=== PATIENT | female | born 1965 | race Caucasian/White ===

== ENCOUNTER → 2018-05-24 08:57 | Emergency (ER) | payer BC ==
[~2018-05-24 08:57] MED LIST: Al Hydrox/Mg Hydrox/Simet LIQ* 30 ML UDC PO ONE; Famotidine TAB* 20 MG PO ONE; HYDROmorphone INJ* 2 MG/ML CARPUJECT SYRINGE IV SLOW PU ONE; HYDROmorphone INJ1* 1 MG/ML SYRINGE IV ONE; HYDROmorphone INJ1* 1 MG/ML SYRINGE ONE; Iodixanol* (CONTRAST) 320 MG/ML 100 ML SDV IV ONE; Lidocaine 2% VISCOUS* 15 ML UDC PO ONE; NS 0.9% 1000 ML* 1,000 ML IV ONE; Pantoprazole IV* 40 MG IV ONE
[2018-05-24 09:32] LABS: ABS Basophils 0.1 10^3/ul (0-0.2); ABS Eosinophils 0.1 10^3/ul (0-0.6); ABS Monocytes 0.9 10^3/ul (0-0.8); ABS Nucleated RBC 0 10^3/ul; Eosinophil % 0.5 % (0-6); Hematocrit 44 % (35-47); Hemoglobin 15.2 g/dl (12.0-16.0); Lymphocyte % 10.4 % (25-47); Mean Corpuscular HGB Conc 34 g/dl (31-36); Mean Corpuscular Hemoglobin 29 pg (27-31); Mean Corpuscular Volume 85 fL (80-97); Mean Platelet Volume 9.7 fL (7.4-10.4); Nucleated Red Blood Cells % 0.1; Platelet Count 281 10^3/ul (150-450); Red Blood Count 5.21 10^6/ul (4.00-5.40); Red Cell Distribution Width 13 % (10.5-15)
--- NOTE | 2018-05-24 09:33 | ED ---
HPI Chest Pain - HPI Summary HPI Summary: This patient is a 52 year old F BIBA to [facility] accompanied by family with a chief complaint of crushing sub-sternal CP that began at 0600. The patient rates the pain 10/10 in severity. Symptoms aggravated by nothing. Symptoms alleviated by nothing. Patient reports palpitations (chronic). Patient denies cough, nasal congestion, and fever. Patient states she has a history of diabetes and GERD. - History of Current Complaint Time Seen by Provider: 05/24/18 09:08 Hx Obtained From: Patient Onset/Duration: Started Hours Ago, Atraumatic, Still Present Timing: Constant Initial Severity: Severe Current Severity: Severe Pain Intensity: 10 Pain Scale Used: 0-10 Numeric Chest Pain Location: Mid Sternal Chest Pain Radiates: No Character: Crushing Aggravating Factor(s): Nothing Alleviating Factor(s): Nothing Associated Signs and Symptoms: Positive: Other: - Positive palpitations (chronic ). Negative cough, nasal congestion, and fever. - Allergy/Home Medications Allergies/Adverse Reactions: Allergies Allergy/AdvReac Type Severity Reaction Status Date / Time No Known Allergies Allergy Verified 05/24/18 09:27 Home Medications: Home Medications Atorvastatin* [Lipitor 20 MG*] 20 mg PO DAILY 05/24/18 [History Confirmed ] Dulaglutide (NF) [Trulicity (NF)] 1.5 mg SUBCUT WEEKLY 05/24/18 [History Confirmed 05/24/18] Insulin Glargine,Hum.rec.anlog [Lantus Solostar 5x3 ML PENS] 20 units SUBCUT BEDTIME 05/24/18 [History Confirmed 05/24/18] Metoprolol Succinate XL TAB* [Toprol XL TAB*] 25 mg PO DAILY 05/24/18 [History Confirmed 05/24/18] Omeprazole 20 mg PO DAILY 05/24/18 [History Confirmed 05/24/18] Sitagliptin Phosphate [Januvia] 100 mg PO DAILY 05/24/18 [History Confirmed 10/06] metFORMIN* [Glucophage 1000 MG TAB *] 1,000 mg PO BID 05/24/18 [History Confirmed 05/24/18] PMH/Surg Hx/FS Hx/Imm Hx Previously Healthy: No Endocrine/Hematology History: Reports: Hx Diabetes Cardiovascular History: Reports: Other Cardiovascular Problems/Disorders - Palpitations GI History: Reports: Hx Gastroesophageal Reflux Disease - Cancer History Hx Chemotherapy: No Hx Radiation Therapy: No - Surgical History Surgery Procedure, Year, and Place: HERNIA REPAIR Infectious Disease History: Reports: Traveled Outside the [place] in Last 30 Days - [place] - Family History Known Family History: Positive: Diabetes - Social History Occupation: Employed Full-time Lives: With Family Alcohol Use: Occasionally Hx Substance Use: No Hx Tobacco Use: Yes Smoking Status (MU): Former Smoker Review of Systems Negative: Fever Positive: Other - Negative nasal congestion Positive: Palpitations, Chest Pain Negative: Cough All Other Systems Reviewed And Are Negative: Yes Physical Exam - Summary Physical Exam Summary: Appearance: Well appearing, no pain distress Skin: warm, dry, reflects adequate perfusion Head/face: normal Eyes: EOMI, MAHIN ENT: mucous membranes moist Neck: supple, non-tender Respiratory: CTA, breath sounds present Cardiovascular: RRR, pulses symmetrical Abdomen: soft. No RUQ pain, no tenderness upon palpation Bowel Sounds: present Musculoskeletal: normal, strength/ROM intact Neuro: normal, sensory motor intact, A&Ox3 Triage Information Reviewed: Yes Vital Signs Reviewed: Yes Diagnostics - Laboratory Result Diagrams: 05/24/18 09:19 05/24/18 09:19 Lab Statement: Any lab studies that have been ordered have been reviewed, and results considered in the medical decision making process. - Radiology CXR Radiology Interpretation Completed By: ED Physician Summary of Radiographic Findings: CXR reveals, per ED physician, no acute disease. - CT CT Abdomen and Pelvis CT Interpretation Completed By: Radiologist Summary of CT Findings: CT abdomen and pelvis reveals, per radiologist, 1. Cholelithiasis without evidence of pathologic biliary obstruction or acute inflammatory change of the gallbladder. 2. Likely hepatic steatosis and hepatomegaly. 3. Normal appendix. 4. Scattered distal colonic diverticula without definite inflammatory change consistent with acute diverticulitis. ED physician has reviewed this radiology report. - EKG 0913 Cardiac Rate: NL EKG Rhythm: Sinus Rhythm - [address] Segment: Normal Ectopy: None Summary of EKG Findings: An EKG taken at 0913 reveals normal sinus rhythm at 93 BPM with normal axis, normal interval, and normal ST - Additional Comments Diagnostic Additional Comments: Gallbladder US reveals, per radiologist, 1. CHOLELITHIASIS WITHOUT SIGNS OF ACUTE BILIARY OBSTRUCTION OR ACUTE INFLAMMATORY CHANGE OF THE GALLBLADDER. 2. HOMOGENOUSLY INCREASED ECHOGENICITY OF THE MILDLY ENLARGED LIVER COULD BE SEEN IN THE SETTING OF HEPATIC STEATOSIS. ED physician has reviewed this radiology report. Re-Evaluation - Re-Evaluation First Eval Re-Evaluation Time: 10:25 Change: Unchanged Comment: Patient is pacing in the room Second Eval Re-Evaluation Time: 11:28 Change: Improved Comment: Patient reports pain is improved. Upon re-examination she no longer has tenderness. Chest Pain Course/Dx - Course Course Of Treatment: Patient had been out of the country drinking daily while in the [place]. She has acute onset of epigastric discomfort that is nonradiating. Gallbladder ultrasound shows a stone but no evidence for inflammation. Contrasted CT reveals some upper abdominal adenopathy but no evidence for gastritis or perforation. The gallstone is again seen. Patient is much more comfortable with GI treatments and treatment of pain. She was observed for several hours and had no return of pain. The abdomen is soft attempted discharge. - Chest Pain Differential Diagnosis/HQI/PQRI: ACS, CHF, GI Disease, Lower Respiratory Infection - Diagnoses Provider Diagnoses: Gastritis, Epigastric abdominal pain Discharge - Sign-Out/Discharge Documenting (check all that apply): Patient Departure - Discharge home - Discharge Plan Condition: Improved Disposition: HOME Prescriptions: Famotidine TAB* [Pepcid 20 MG TAB*] 20 mg PO BID #20 tab Pantoprazole TAB (NF) [Protonix TAB (NF)] 40 mg PO DAILY #30 tab Sucralfate TAB* [Carafate*] 1 gm PO ACHS #40 tab traMADol TAB* [Ultram*] 50 mg PO Q8HR #12 tab MDD 3 Patient Education Materials: Gastritis (ED) Referrals: Chris Eldridge MD [Primary Care Provider] - Additional Instructions: Avoid any anti-inflammatory such as ibuprofen or Aleve. Avoid alcohol. Return with fever, uncontrolled pain, worse, new symptoms or other concerns as discussed. - Billing Disposition and Condition Condition: IMPROVED Disposition: Home - Attestation Statements Document Initiated by Scribe: Yes Documenting Scribe: Meryl Quezada Provider For Whom Scribe is Documenting (Include Credential): Dr. Chris Mills MD Scribe Attestation: IMeryl, scribed for Dr. Chris Mills MD on 05/24/18 at 1440. Scribe Documentation Reviewed: Yes Provider Attestation: The documentation as recorded by the scribe, Meryl Quezada accurately reflects the service I personally performed and the decisions made by me, Dr. Chris Mills MD
[2018-05-24 09:45] LABS: INR 0.93 (0.77-1.02)
[2018-05-24 09:52] LABS: EGFR Non-African American 129.6 (>60)
--- NOTE | 2018-05-24 09:53 | RAD ---
INDICATION: Chest pain COMPARISON: None. TECHNIQUE: Single AP portable view of the chest was obtained. FINDINGS: Image quality is compromised due to the relative inferiority of a portable chest x-ray. The heart and mediastinum exhibit normal size and contour. The lungs are grossly clear. There is no evidence of a large pleural effusion. Visualized bones are normal for the patient's age. IMPRESSION: No radiographic evidence for acute cardiopulmonary abnormality on this portable chest x-ray.
--- NOTE | 2018-05-24 11:09 | RAD ---
HISTORY: Right upper quadrant pain. COMPARISONS: None TECHNIQUE: Multiple transverse and longitudinal ultrasound images were obtained of the right upper quadrant. FINDINGS: LIVER: The liver is mildly enlarged measuring 20.7 cm in greatest cephalocaudal dimension with homogenously increased echogenicity. Normal hepatic and portal venous blood flow is duplicated with color flow imaging. There is no gross intrahepatic biliary duct dilatation. GALLBLADDER AND EXTRAHEPATIC BILIARY DUCT: In the dependent portion of the gallbladder including the gallbladder neck there are at least 2 echogenic shadowing stones. There is no pericholecystic fluid or gallbladder wall thickening. The common bile duct measures a maximum diameter of 6 mm. PANCREAS: The portions of the pancreas not obscured by bowel gas are normal in appearance. RIGHT KIDNEY: The right kidney is normal in size, morphology and echogenicity. AORTA AND IVC: The visualized portions are normal in appearance and not pathologically dilated. IMPRESSION: 1. CHOLELITHIASIS WITHOUT SIGNS OF ACUTE BILIARY OBSTRUCTION OR ACUTE INFLAMMATORY CHANGE OF THE GALLBLADDER. 2. HOMOGENOUSLY INCREASED ECHOGENICITY OF THE MILDLY ENLARGED LIVER COULD BE SEEN IN THE SETTING OF HEPATIC STEATOSIS.
--- NOTE | 2018-05-24 14:02 | RAD ---
CLINICAL HISTORY: Chest pain and nausea in a patient with a history of hernia repair COMPARISON: Same day gallbladder ultrasound demonstrates cholelithiasis. TECHNIQUE: Contrast enhanced CT examination of the abdomen and pelvis from the lung bases through the initial tuberosities. The patient received 122 mL of Visipaque 320 intravenously prior to imaging.The patient received oral contrast as well prior to imaging. FINDINGS: VISUALIZED LUNG BASES: The visualized lung bases are grossly clear. There is no pleural effusion. ABDOMEN AND PELVIS: The liver is homogenously hypodense relative to the spleen. There are no focal liver masses. The liver measures 20.2 cm in greatest cephalocaudal dimension. The spleen, pancreas and adrenal glands are grossly normal in appearance. There are hyperattenuating stones in the dependent gallbladder correlating to images acquired on the same day ultrasound. The kidneys are normal in appearance without focal mass, calcification or signs of hydronephrosis. The oral contrast has progressed only as far as the distal small bowel which limits evaluation of the terminal ileum and colon. The small and large bowel are not distended. The patient's normal appendix is identified in the right lower quadrant measuring about 5 mm in diameter (axial image 58) without pericholecystic inflammatory changes. There are scattered distal colonic diverticula but there is no focal inflammatory change characteristic of acute diverticulitis.. There is no gross retroperitoneal or mesenteric lymphadenopathy. The pelvic viscera is normal in appearance. The abdominal aorta and iliac arteries are normal in course and diameter. Degenerative changes include multilevel loss of intervertebral disc height involving the lower thoracic and lumbar spine.There are no sinister bone lesions. IMPRESSION: 1. Cholelithiasis without evidence of pathologic biliary obstruction or acute inflammatory change of the gallbladder. 2. Likely hepatic steatosis and hepatomegaly. 3. Normal appendix. 4. Scattered distal colonic diverticula without definite inflammatory change consistent with acute diverticulitis.
[2018-05-24 14:34] VITALS: BP 103/82
== END | disposition home or self-care (01) ==
LOC: ED 08:57
DX: K29.70 Gastritis, unspecified, without bleeding (principal); R10.13 Epigastric pain; R00.2 Palpitations; R07.9 Chest pain, unspecified; Z87.891 Personal history of nicotine dependence; E11.9 Type 2 diabetes mellitus without complications
CPT/HCPCS: 36415; 71045; 74177; 76705; 80053; 83605; 83690; 83880; 84443; 84484; 85025; 85379; 85610; 93005; 96374; 96375; 96376; 99284; A9270-GY; J1170; Q9967

== ENCOUNTER 2018-05-29 15:15 | Emergency (ER) | payer BC ==
--- OUTSIDE RECORDS SUMMARY | 2018-05-29 15:25 | XMS REPORT ---
:1965 External Reference #:[id number] Author Organization [facility] Address [address] [place] [address] Phone [phone] Care Team Providers Name Role Phone Chris Eldridge MD Care Team Information Service Crew Leader Unavailable Chris Eldridge MD Primary Care Physician Unavailable Payers Type Date Identification Numbers Payment Provider Subscriber Commercial Effective: Policy Number: BluePPO Usha Eden 2016 [id number] PayID: [id number] [id number] Problems Date Description Provider Status Onset: 10/26/2015 Disorder of teeth AND/OR supporting Erik Whitmore M.D. Active structures Onset: 04/01/2014 Type II diabetes mellitus Chris Eldridge M.D. Active uncontrolled Onset: 12/24/2013 Palpitations Chris Eldridge M.D. Active Onset: 04/18/2013 Cellulitis Erik Whitmore M.D. Active Onset: 11/02/2010 Type 2 diabetes mellitus Chris Eldridge M.D. Active Family History Date Family Member(s) Problem(s) Comments Father due to Etoh abuse () Father Alcoholism Mother Diabetes Mellitus, II Mother Throat Cancer Mother OR Number of Children 1 First Son Unremarkable Number of Siblings Siblings: 8 First Sister Aneurysm of ascending aorta Second Sister Diabetes Mellitus, II Social History Type Date Description Comments Marital Status Patient is Occupation TTC / banking Cigarette Use Nonsmoker ETOH Use Occasional Smoking Patient has never smoked Daily Caffeine Does not consume caffeine Exercise Type/Frequency Current Exercises regularly. Walking Seat Belt/Car Seat Always uses a seat belt Currently Active The patient is currently sexually active Allergies, Adverse Reactions, Alerts Date Description Reaction Status Severity Comments 10/27/2002 Darvocet active 02/04/2015 Lisinopril dizziness active Medications Medication Date Status Form Strength Qnty SIG Indications Ordering Provider Insulin 07/12 Active 1box Syringes Hoa Syringes with JEAN-CLAUDE Deshpande needle to inject Lantus 10 units Subcutaneo usly in the evening Betamethasone 10/14 Active Cream 0.1% 90gm Apply 2 692.9 Chris A. Valerate Times Darlow, Daily as M.D. Needed Freestyle Lite 09/30 Active Strips 1Box test bid E11.9 Chris A. Test Strips dx: 250.03 Jazmyn, Lupe Freestyle 09/30 Active Misc 1box test qd E11.9 Vida Unistick II dx: 250.03 Katiana Saavedra-Delta Vitamin D3 09/27 Active 2000Unit 90uni 1 po qd E11.9 Radha Tyrone. martín Burns M.D. Metoprolol Active Tablets ER 25mg 90tab 1 po qd Unknown Succinate ER /0000 24HR s Atorvastatin Active Tablets 20mg 2 by mouth Unknown Calcium /0000 every day Omeprazole [address] 20mg 1 by mouth Unknown /0000 every day Metformin HCL Active Tablets 1000mg take one Unknown /0000 tablet by mouth twice a day Januvia Active Tablets 100mg 1 by mouth Unknown /0000 every day Lantus 00 Active Solution 100Unit/M 20 units Unknown /0000 L at bedtime Famotidine Active Tablets 20mg take one Unknown /0000 tablet by mouth twice a day Pantoprazole Active Tablets DR 40mg 1 by mouth Unknown Sodium /0000 every day Sucralfate Active Tablets 1gm take 1 by Unknown /0000 mouth 4 times per day: before meals and at bedtime Tramadol HCL Active Tablets 50mg 1 by mouth Unknown /0000 every 6 hours as needed Diflucan 03/20 Hx Tablets 150mg 10tab 1 tab po N76.0 s daily x 5 John, - days, november LOOM BLOWER 05/29 repeat day course in one week if symptoms fail to resolve/ Hold Atorvastat in While Usingthis Augmentin 10/25 Hx Tablets 500-125mg 20tab 1 by mouth Erik Costello s twice a Haim, - day M.D. 03/20 Camrese 06/28 Hx Tablets 0.15-0.03 1tabs take 1 &0.01mg tablet John, - daily LOOM BLOWER 05/29 Fluconazole 02/04 Hx Tablets 150mg 2tabs 1 by mouth 112.1 today and JEAN-CLAUDE Deshpande - repeat in 02/11 a Nor-qd 02/04 Hx Tablets 0.35mg 30tab 1 by mouth V25.41 s daily JEAN-CLAUDE Deshpande - 05/29 Alcohol Pads 07/12 Hx 1Box For use with JEAN-CLAUDE Deshpande - Lantus 02/04 insulin daily Lantus Solostar 07/12 Hx Solution 100Unit/M inject 10 Pen-Inject L units each JEAN-CLAUDE Deshpande - evening or 02/04 directed Metformin HCL 07/06 Hx Tablets 500mg 90tab 1 by mouth 250.02 s every day JEAN-CLAUDE Deshpande - 02/04 Lantus 07/06 Hx Solution 100Unit/M 10uni inject 10 L ts units Jazmyn, - under the M.D. 07/12 skin evening as directed Meloxicam 07/01 Hx Tablets 7.5mg 30tab take 1 726.10 Chris A. s tablet Darjareth, - twice a M.D. Januvia 04/01 Hx Tablets 100mg 90tab 1 po qd 250.02 Chris A. s Jazmyn, - M.D. 07/06 Diflucan 12/24 Hx Tablets 150mg 2tabs 1 po times 112.1 Chris A. 1 day, november Jazmyn, - repeat in M.D. 12/26 5-7 days Januvia 12/24 Hx Tablets 50mg 30tab 1 po qd 250.02 Chris A. s Jazmyn, - M.D. 04/01 Glipizide/Metfo 04/22 Hx Tablets 2.5-500mg 120ta Take 2 250.02 Vida rmin HCL bs Tablets By Quentin, - Mouth Two Afnp-C 04/28 Times Daily Glipizide-Metfo 04/22 Hx Tablets 2.5-500mg 120ta take 2 250.02 Vida rmin bs tablets by Quentin, - mouth two Afnp-C 07/06 daily Metformin HCL 01/20 Hx Tablets 1000mg 60tab take 1 250.02 s tablet by Quentin, - mouth Robert-C 04/22 twice a day Metformin HCL 10/14 Hx Tablets 500mg 60tab 1 po bid 250.02 s Quentin, - Robert-C 01/20 Terconazole 10/01 Hx Cream 0.4% 1tube 1 616.10 applicator Quentin, - full Robert-C 10/08 vaginally at hs x 7 Fluconazole 10/01 Hx Tablets 100mg 7tabs 1 po qd x 616.10 7 days Quentin, - Robert-C 10/08 Seasonale 10/16 Hx Tablets 0.15-0.03 1pack 1 po qd 626.2 mg Quentin, - Robert-C 10/01 Amoxicillin 05/17 Hx Capsules 500mg 14cap bid x 7 Erik J. s Katelynn Najera M.D. 05/29 Fluoxetine HCL 02/13 Hx Capsules 10mg 30cap 1 po qd 627.9 Chris ACristian Katelynn Mccann M.D. 09/27 Spectazole 09/20 Hx Cream 1% 30GR apply bid 110.3 Nena L. to area x Mello, - 2-4 weeks M.D. 02/13 directed Nizoral 09/20 Hx Shampoo 2% 1unit use in 110.3 Nena L. s shower 2-3 Mello, - times/week M.D. 02/13 . Spectazole 07/18 Hx Cream 1% 30GR apply bid 110.3 Chris A. to area x Jazmyn, - 2-4 weeks M.D. 07/30 directed Mycolog-II 10/20 Hx Cream 30gm apply bid 110.3 Chris A. to Jazmyn, - affected M.D. 07/18 area x 2- weeks Diflucan 10/19 Hx Tablets 150mg 1tabs 1 po x1 Laxmi, - Afnp-C 10/20 Work Excuse 10/06 Hx unable to Erik JCristian work for Haim, - 2-3 days M.D. 10/19 Nystatin 12/02 Hx Suspension [id number] 200ml 5 ml swish t/ML and spit q owen Guerrero, - 4 hours M.D. 10/06 awake until lesion resolved Out Of Work 12/02 Hx 12/03/07 for owen Guerrero, - medical M.D. 10/06 Amoxil 07/23 Hx Capsules 500mg 30cap 1 PO tid s Katelynn Hair Afnp-C 08/02 Relafen 03/04 Hx Tablets 500mg 30tab 1 PO bid 840.8 Chris A. /2006 s Katelynn Eldridge M.D. 03/18 Physical 03/04 Hx treatment 840.8 Chris ACristian and Katelynn Eldridge evaluation M.DCristian 03/16 biceps pain Naprosyn 08/02 Hx Tablets 500mg 30tab 1 bid With 726.12 Chris ACristian /2005 s Food Katelynn Eldridge M.D. 08/12 Norflex 08/02 Hx Tablets 100mg 30tab 1 PO bid 726.12 Chris A. /2005 s Katelynn Eldridge M.D. 08/12 Relafen 04/03 Hx 500mg 60uni 1 PO bid Chris A. ts prn Katelynn Eldridge M.D. 08/02 Atarax 02/04 Hx Tabs 25mg 24tab 1 po 3-4 s times a Aurelio, LOOM BLOWER - day prn 08/02 itching /2005 Hydrocortisone 02/04 Hx 1% 30gm apply tid prn to LEEANNA CareyP - affected 08/02 areas /2005 Apri 12/29 Hx 1Pack 1 po qd Chris A. /2003 Katelynn Eldridge M.D. 11/02 Bextra 12/29 Hx 20mg 30uni 1 qd Chris A. Katelynn Sesay M.D. 01/28 Physical 12/29 Hx treatment Chris ACristian Therapy and Jazmyn - evaluation Lupe 01/26 Of Shoulder Ibuprofen 03/12 Hx 600mg 60uni 1 po q8h Vida ts prn with Katelynn Saavedra food Afnp-C 12/29 Ankle Stirrup 03/12 Hx 1unit Left Ankle Vida Brace s #1 Katelynn Saavedra-Delta 03/26 Vioxx 10/26 Hx 50mg 4unit One PO Chris A. s X4days Katelynn Eldridge M.D. 11/03 Pen VK 09/30 Hx Tablets 500mg 40tab 1 qid [facility] 10/01 Of Adkins Diflucan 09/30 Hx 150mg 2unit 1 PO One Eduard J. /2002 s Time Michela, - Repeat If Lupe 10/01 Still SX In 3 Days Augmentin 07/16 Hx 875mg 20uni 1 PO bid Alexandr T. Katelynn Marroquin M.D. 07/14 Duratuss GP 07/16 Hx 30uni 1 PO Q 12 Alexandr T. ts HR prn Rasheeda - Head M.DCristian 07/14 Congestion Augmentin 07/04 Hx 500mg 20uni 1 po bid Erik J. Katelynn Aviles M.D. 10/19 Duravent Da 07/04 Hx 20uni 1 PO bid Chris A. Katelynn Sesay M.D. 07/14 Cutivate Cream 03/14 Hx 0.05% 15G apply once a day prn Katelynn Saavedra-Delta 12/29 Orthotricyclen 11/07 Hx [facility] 12/29 Of Penicillin VK 11/07 Hx 250mg 30uni One tid Thomas Mc Katelynn Shaw M.D. 11/17 Zithromax 09/24 Hx 250mg 6unit 2 Tabs Day . s 1 Brian - M.DCristian 09/29 Tab qd Days 2 Thru 5 Entex Pse 09/24 Hx 30uni 1 bid prn . ts Congestion Brian - M.DCristian 10/14 Motrin 03/13 Hx 600mg 30uni 1 PO tid Thomas . ts prn Brian - M.DCristian 11/07 Bactrim DS 03/23 Hx 14uni 1 PO bid Lisandro F. ts Shallreinaldo - M.DCristian 03/30 Bactrim DS 11/25 Hx 14uni 1 PO bid ts Ryan, - CANDLE WRAPPER-F 12/02 Pyridium 11/25 Hx 200mg 15uni 1 PO tid ts prn Ryan, - CANDLE WRAPPER-F 12/02 Naproxen 08/26 Hx 375mg Tab 30uni 1 PO tid ts For 5 Days Blangelic, - Then tid M.DCristian 09/09 pr Entex Pse 04/28 Hx 20uni 1 bid prn ts Laxmi, - Afnp-C 08/02 Zithromax 04/28 Hx 250mg 6unit 2 Tabs Day . s 1 Brian - MCristianDCristian 08/26 Tab qd Days 2 Thru 5 Betamethasone Hx Cream 0.1% 45uni apply bid Unknown Valerate /0000 ts prn - 05/10 Bactrim DS Hx Tablets 800-160mg 14tab 1 po bid Unknown /0000 s - 07/30 Seasonique Hx Tablets 0.15-0.03 91tab take 1 Chris A. /0000 &0.01mg s tablet by Darlow, - mouth one M.D. 02/04 time daily Glipizide-Metfo Hx Tablets 2.5-500mg 120ta Take 2 Chris A. rmin HCL /0000 bs Tablets By Darlow, - Mouth Two M.D. 10/25 Daily Victoza Hx Solution 18mg/3ML 1.8 units Unknown /0000 Pen-Inject per day - 05/29 Invokana Hx Tablets 300mg 1 po qd Unknown /0000 - 07/25 Medications Administered in Office Medication Date Status Form Strength Qnty SIG Indications Ordering Provider TB Intradermal Administered Injection Chris Eldridge M.D. Immunizations CPT Code Status Date Vaccine Lot # [id number] Given 04/04/2018 Influenza Vac, Quad[place] [id number] Given 04/27/2017 Influenza Vac, [place] [address] Given 05/28/2014 DO Not Use Split Influenza Virus Vaccine 46929 Given 10/15/2013 Tdap Tetanus, W Pertussis [id number] Given 05/08/2012 DO Not Use Split Influenza Virus Vaccine 14471 Given 05/10/2010 DO Not Use Split Influenza Virus Vaccine 64540 Given 04/28/2009 DO Not Use Split Influenza Virus Vaccine Vital Signs Date Vital Result Comment 05/29/2018 BP Systolic 120 mmHg BP Diastolic 60 mmHg Heart Rate 80 /min Body Temperature 97.4 F Respiratory Rate 16 /min Height 64 inches 5'4" Weight 220.00 lb BMI (Body Mass Index) 37.8 kg/m2 03/20/2016 BP Systolic 110 mmHg BP Diastolic 78 mmHg Heart Rate 80 /min Body Temperature 98.0 F Respiratory Rate 18 /min Height 64 inches 5'4" Weight 210.00 lb BMI (Body Mass Index) 36.0 kg/m2 10/26/2015 BP Systolic 124 mmHg BP Diastolic 80 mmHg Heart Rate 78 /min Body Temperature 98.1 F Respiratory Rate 16 /min Height 64 inches 5'4" Weight 213.00 lb BMI (Body Mass Index) 36.6 kg/m2 02/04/2015 BP Systolic 112 mmHg BP Diastolic 80 mmHg Heart Rate 80 /min Body Temperature 98.0 F Respiratory Rate 16 /min Height 64 inches 5'4" Weight 218.00 lb BMI (Body Mass Index) 37.4 kg/m2 07/12/2014 BP Systolic 120 mmHg BP Diastolic 80 mmHg Heart Rate 76 /min Body Temperature 98.3 F Respiratory Rate 16 /min Height 64 inches 5'4" Weight 234.00 lb BMI (Body Mass Index) 40.2 kg/m2 07/01/2014 BP Systolic 122 mmHg BP Diastolic 80 mmHg Heart Rate 88 /min Body Temperature 97.0 F Respiratory Rate 20 /min Height 64 inches 5'4" Weight 231.00 lb BMI (Body Mass Index) 39.6 kg/m2 04/01/2014 BP Systolic 120 mmHg BP Diastolic 80 mmHg Heart Rate 84 /min Body Temperature 97.6 F Respiratory Rate 20 /min Height 64 inches 5'4" Weight 234.00 lb BMI (Body Mass Index) 40.2 kg/m2 12/24/2013 BP Systolic 120 mmHg BP Diastolic 60 mmHg Heart Rate 72 /min Body Temperature 98.0 F Respiratory Rate 20 /min Height 64 inches 5'4" Weight 237.00 lb BMI (Body Mass Index) 40.7 kg/m2 10/15/2013 BP Systolic 132 mmHg BP Diastolic 92 mmHg Heart Rate 76 /min Body Temperature 99.0 F Respiratory Rate 16 /min Height 64 inches 5'4" Weight 229.00 lb BMI (Body Mass Index) 39.3 kg/m2 07/30/2013 BP Systolic 112 mmHg BP Diastolic 80 mmHg Heart Rate 68 /min Body Temperature 98.5 F Respiratory Rate 16 /min Height 65 inches 5'5" Weight 227.00 lb BMI (Body Mass Index) 37.8 kg/m2 04/22/2013 BP Systolic 134 mmHg BP Diastolic 90 mmHg Heart Rate 84 /min Body Temperature 97.6 F Respiratory Rate 16 /min Height 65 inches 5'5" Weight 220.00 lb BMI (Body Mass Index) 36.6 kg/m2 04/18/2013 BP Systolic 134 mmHg BP Diastolic 76 mmHg Heart Rate 66 /min Body Temperature 98.3 F Respiratory Rate 16 /min Height 65 inches 5'5" Weight 220.38 lb BMI (Body Mass Index) 36.7 kg/m2 01/20/2013 BP Systolic 122 mmHg BP Diastolic 80 mmHg Heart Rate 72 /min Body Temperature 98.0 F Respiratory Rate 16 /min Height 65 inches 5'5" Weight 226.00 lb BMI (Body Mass Index) 37.6 kg/m2 10/14/2012 BP Systolic 110 mmHg BP Diastolic 70 mmHg Heart Rate 96 /min Body Temperature 98.7 F Height 65 inches 5'5" Weight 231.00 lb BMI (Body Mass Index) 38.4 kg/m2 10/01/2012 BP Systolic 104 mmHg BP Diastolic 78 mmHg Heart Rate 84 /min Body Temperature 98.7 F Height 65 inches 5'5" Weight 231.00 lb BMI (Body Mass Index) 38.4 kg/m2 10/11/2011 BP Systolic 120 mmHg BP Diastolic 80 mmHg Heart Rate 96 /min Height 65 inches 5'5" Weight 243.00 lb BMI (Body Mass Index) 40.4 kg/m2 07/30/2011 BP Systolic 120 mmHg BP Diastolic 68 mmHg Heart Rate 84 /min Body Temperature 98.4 F Respiratory Rate 22 /min Height 65 inches 5'5" Weight 234.00 lb BMI (Body Mass Index) 38.9 kg/m2 02/05/2011 BP Systolic 114 mmHg BP Diastolic 76 mmHg Heart Rate 88 /min Body Temperature 98.4 F Height 65 inches 5'5" Weight 223.00 lb BMI (Body Mass Index) 37.1 kg/m2 11/02/2010 BP Systolic 124 mmHg BP Diastolic 74 mmHg Heart Rate 74 /min Body Temperature 98.5 F Respiratory Rate 16 /min Height 65 inches 5'5" Weight 234.00 lb BMI (Body Mass Index) 38.9 kg/m2 10/16/2010 BP Systolic 110 mmHg BP Diastolic 70 mmHg Heart Rate 80 /min Body Temperature 97.5 F Respiratory Rate 20 /min Height 65 inches 5'5" Weight 239.00 lb BMI (Body Mass Index) 39.8 kg/m2 10/07/2010 BP Systolic 130 mmHg BP Diastolic 90 mmHg Heart Rate 80 /min Respiratory Rate 15 /min Height 65 inches 5'5" Weight 242.00 lb BMI (Body Mass Index) 40.3 kg/m2 09/30/2010 BP Systolic 136 mmHg BP Diastolic 90 mmHg Heart Rate 100 /min Body Temperature 98.3 F Respiratory Rate 20 /min Height 65 inches 5'5" Weight 242.00 lb BMI (Body Mass Index) 40.3 kg/m2 09/27/2010 BP Systolic 120 mmHg BP Diastolic 78 mmHg Heart Rate 68 /min Respiratory Rate 15 /min Height 65 inches 5'5" Weight 248.00 lb BMI (Body Mass Index) 41.3 kg/m2 05/29/2010 BP Systolic 122 mmHg BP Diastolic 82 mmHg Heart Rate 88 /min Body Temperature 98.2 F Respiratory Rate 16 /min Height 65 inches 5'5" Weight 248.00 lb BMI (Body Mass Index) 41.3 kg/m2 05/17/2010 BP Systolic 124 mmHg BP Diastolic 66 mmHg Heart Rate 90 /min Body Temperature 98.9 F Height 65 inches 5'5" Weight 249.00 lb BMI (Body Mass Index) 41.4 kg/m2 02/13/2010 BP Systolic 120 mmHg BP Diastolic 82 mmHg Heart Rate 84 /min Body Temperature 98.4 F Respiratory Rate 16 /min Height 65 inches 5'5" Weight 248.00 lb BMI (Body Mass Index) 41.3 kg/m2 09/20/2009 BP Systolic 128 mmHg BP Diastolic 86 mmHg Heart Rate 96 /min Body Temperature 98.2 F Height 65 inches 5'5" Weight 244.00 lb BMI (Body Mass Index) 40.6 kg/m2 07/18/2009 BP Systolic 118 mmHg BP Diastolic 80 mmHg Heart Rate 84 /min Body Temperature 98.6 F Respiratory Rate 16 /min Height 65 inches 5'5" Weight 249.00 lb BMI (Body Mass Index) 41.4 kg/m2 05/10/2009 BP Systolic 120 mmHg BP Diastolic 66 mmHg Heart Rate 96 /min Body Temperature 98.6 F Respiratory Rate 16 /min Height 65 inches 5'5" Weight 244.00 lb BMI (Body Mass Index) 40.6 kg/m2 02/10/2009 BP Systolic 120 mmHg BP Diastolic 82 mmHg Heart Rate 72 /min Body Temperature 98.4 F Respiratory Rate 16 /min Height 65 inches 5'5" Weight 242.00 lb BMI (Body Mass Index) 40.3 kg/m2 10/19/2008 BP Systolic 100 mmHg BP Diastolic 70 mmHg Heart Rate 84 /min Body Temperature 98.3 F Weight 234.00 lb 10/06/2008 BP Systolic 124 mmHg BP Diastolic 88 mmHg Heart Rate 72 /min Body Temperature 99.4 F Height 65 inches 5'5" 12/03/2007 BP Systolic 120 mmHg BP Diastolic 80 mmHg Heart Rate 88 /min Body Temperature 98.6 F Height 65 inches 5'5" 2007 BP Systolic 130 mmHg BP Diastolic 74 mmHg Heart Rate 80 /min Body Temperature 99.0 F Height 65 inches 5'5" Weight 240.00 lb BMI (Body Mass Index) 39.9 kg/m2 07/23/2007 BP Systolic 126 mmHg BP Diastolic 82 mmHg Body Temperature 99.0 F Respiratory Rate 13 /min Weight 244.00 lb 03/04/2007 BP Systolic 112 mmHg BP Diastolic 80 mmHg Heart Rate 88 /min Weight 241.00 lb 12/25/2005 BP Systolic 114 mmHg BP Diastolic 72 mmHg Heart Rate 68 /min Respiratory Rate 18 /min 08/02/2005 BP Systolic 114 mmHg BP Diastolic 70 mmHg Heart Rate 72 /min Body Temperature 98.7 F Respiratory Rate 16 /min Weight 235.00 lb 07/21/2004 BP Systolic 110 mmHg BP Diastolic 70 mmHg Body Temperature 98.5 F Weight 233.50 lb 02/05/2004 BP Systolic 126 mmHg BP Diastolic 80 mmHg Heart Rate 72 /min Weight 233.00 lb 12/30/2003 BP Systolic 122 mmHg BP Diastolic 80 mmHg Heart Rate 78 /min Weight 234.00 lb 03/12/2003 BP Systolic 96 mmHg BP Diastolic 64 mmHg Heart Rate 88 /min Weight 213.00 lb 11/03/2002 BP Systolic 110 mmHg BP Diastolic 84 mmHg Body Temperature 98.5 F Weight 214.00 lb 10/27/2002 BP Systolic 120 mmHg BP Diastolic 80 mmHg Body Temperature 98.3 F Weight 215.00 lb 09/30/2002 BP Systolic 110 mmHg BP Diastolic 74 mmHg Heart Rate 76 /min Body Temperature 98.0 F Weight 220.00 lb 07/14/2002 Heart Rate 80 /min Body Temperature 98.7 F Weight 227.00 lb 07/16/2001 BP Systolic 118 mmHg BP Diastolic 70 mmHg Body Temperature 98.0 F Weight 227.00 lb 12/05/2000 BP Systolic 122 mmHg BP Diastolic 70 mmHg Weight 230.00 lb 11/15/2000 BP Systolic 110 mmHg BP Diastolic 72 mmHg Heart Rate 88 /min Weight 234.00 lb 07/04/2000 BP Systolic 138 mmHg BP Diastolic 76 mmHg Heart Rate 76 /min Body Temperature 97.4 F Weight 230.00 lb 03/14/2000 BP Systolic 132 mmHg BP Diastolic 60 mmHg Weight 226.00 lb 11/08/1999 BP Systolic 132 mmHg BP Diastolic 90 mmHg Body Temperature 96.4 F Weight 223.00 lb 09/25/1999 BP Systolic 104 mmHg LA LG Cuff BP Diastolic 66 mmHg LA LG Cuff Body Temperature 97.3 F Weight 220.00 lb 03/13/1999 BP Systolic 106 mmHg LG Cuff BP Diastolic 70 mmHg LG Cuff Weight 213.00 lb 05/12/1998 BP Systolic 100 mmHg LG Cuff BP Diastolic 70 mmHg LG Cuff Body Temperature 97.6 F Weight 225.00 lb 03/23/1998 Body Temperature 98.4 F Height 65 inches 5'5" Weight 225.00 lb 1997 BP Systolic 100 mmHg LG Cuff BP Diastolic 70 mmHg LG Cuff Height 65 inches 5'5" Weight 222.50 lb 08/26/1997 BP Systolic 128 mmHg LG Cuff BP Diastolic 80 mmHg LG Cuff Height 65.00 inches 5'5" Weight 215.00 lb 04/28/1997 Body Temperature 98.3 F Weight 207.00 lb Results Test Date Test Result H/L Range Note Laboratory test 05/24/2018 Troponin I 0.00 ng/mL <0.04 finding Inr/Protime 05/24/2018 Inr 0.93 0.77-1.02 Laboratory test 05/24/2018 D Dimer Quantitative < 200 ng/mL Less Than 230 1 finding CBC Auto Diff 05/24/2018 White Blood Count 19.0 10^3/uL High 3.5-10.8 Red Blood Count 5.21 10^6/uL 4.00-5.40 Hemoglobin 15.2 g/dL 12.0-16.0 Hematocrit 44 % 35-47 Mean Corpuscular Volume 85 fL 80-97 Mean Corpuscular Hemoglobin 29 pg 27-31 Mean Corpuscular HGB Conc 34 g/dL 31-36 Red Cell Distribution Width 13 % 10.5-15 Platelet Count 281 10^3/uL 150-450 Mean Platelet Volume 9.7 fL 7.4-10.4 Abs Neutrophils 16.0 10^3/uL High 1.5-7.7 Abs Lymphocytes 2.0 10^3/uL 1.0-4.8 Abs Monocytes 0.9 10^3/uL High 0-0.8 Abs Eosinophils 0.1 10^3/uL 0-0.6 Abs Basophils 0.1 10^3/uL 0-0.2 Abs Nucleated RBC 0 10^3/uL Granulocyte % 84.1 % High 38-83 Lymphocyte % 10.4 % Low 25-47 Monocyte % 4.5 % 0-7 Eosinophil % 0.5 % 0-6 Basophil % 0.5 % 0-2 Nucleated Red Blood Cells % 0.1 Comp Metabolic Panel 05/24/2018 Sodium 136 mmol/L 135-145 Potassium 3.7 mmol/L 3.5-5.0 Chloride 101 mmol/L 101-111 Co2 Carbon Dioxide 24 mmol/L 22-32 Anion Gap 11 mmol/L 2-11 Glucose 266 mg/dL High 70-100 Blood Urea Nitrogen 7 mg/dL 6-24 Creatinine 0.50 mg/dL Low 0.51-0.95 BUN/Creatinine Ratio 14.0 8-20 Calcium 9.8 mg/dL 8.6-10.3 Total Protein 7.7 g/dL 6.4-8.9 Albumin 4.3 g/dL 3.2-5.2 Globulin 3.4 g/dL 2-4 Albumin/Globulin Ratio 1.3 1-3 Total Bilirubin 1.10 mg/dL High 0.2-1.0 Alkaline Phosphatase 159 U/L High 34-104 Alt 39 U/L 7-52 Ast 58 U/L High 13-39 Egfr Non- 129.6 >60 Egfr 156.8 >60 2 Laboratory test finding 05/24/2018 Lipase 27 U/L 11.0-82.0 Troponin I 0.01 ng/mL <0.04 TSH (Thyroid Stim Horm) 2.10 mcIU/mL 0.34-5.60 Lactic Acid 3.2 mmol/L High 0.5-2.0 3 B-Type Natriuretic Peptide BNP 23 pg/mL <=100 Laboratory test 05/03/2016 Cytology SEE RESULT BELOW 4 finding Laboratory test 03/20/2016 Hemoglobin A1c (Fma) 6.6 % High 4.1-5.7 finding Vaginitis Plus Nuswab 03/20/2016 Atopobium vaginae High - 2 Score 5 Bvab 2 Low - 0 Score 5 Megasphaera 1 Low - 0 Score 5, 6 Margarita albicans, Olinda Positive Negative 5 Margarita glabrata, Olinda Negative Negative 5, 7 Trich vag by Olinda Negative Negative 5 Chlamydia trachomatis, Olinda Negative Negative 5 Neisseria gonorrhoeae, Olinda Negative Negative 5 Laboratory test finding 03/20/2016 PDF [id number] SEE IMAGE 5 Laboratory test finding 02/04/2015 Thin Prep W/HPV SEE NOTE 8 Ua - Non Micro (Fma) 02/04/2015 Appearance clear Color yellow Glucose, Urine (Fma/CMC/CTX) 500 mg/dL known diabetic Bilirubin neg Ketones neg SP Grav 1.010 Blood neg PH 5.0 Protein neg Urobil 0.2 Nitrite neg Leukocytes (Fma/CMC/Centrex) neg Vaginitis Dna Affirm 02/04/2015 Screen Trichomonas Vaginalis Dna NEGATIVE Screen Gardnerella Vaginalis Dna NEGATIVE Screen Margarita Species Dna POSITIVE Laboratory test finding 07/01/2014 Hemoglobin A1c 7.2 % High 4.1-5.7 ([facility] Comprehensive Metabolic 04/01/2014 Sodium 137 mEq/L 134-149 Prof Potassium 4.3 mEq/L 3.6-5.5 Chloride 95 mEq/L 94-112 Carbon Dioxide 27 mEq/L 21-32 Glucose 156 mg/dL High 70-105 9 BUN 12 mg/dL 6-26 Creatinine 0.6 mg/dL 0.6-1.4 BUN/Creat Ratio 20.0 CALC 8.0-36.0 Calcium 9.4 mg/dL 8.6-10.2 Total Protein 7.5 g/dL 6.3-8.1 Albumin 4.1 g/dL 3.8-5.5 Globulin 3.4 g/dL 2.0-4.8 A/G Ratio 1.2 CALC 0.6-2.3 Alk. Phosphatase 58 U/L 30-110 Alt (SGPT) 36 U/L High 7-35 10 Ast (Sgot) 29 U/L 5-34 Total Bilirubin 0.3 mg/dL 0.2-1.3 Laboratory test finding 04/01/2014 Hemoglobin A1c 7.3 % High 4.1-5.7 ([facility] Laboratory test finding 12/22/2013 Hemoglobin A1c 7.4 % High 4.1-5.7 ([facility] Comprehensive Metabolic 12/22/2013 Sodium 135 mEq/L 134-149 Prof Potassium 4.6 mEq/L 3.6-5.5 Chloride 103 mEq/L 94-112 Carbon Dioxide 25 mEq/L 21-32 Glucose 174 mg/dL High 70-105 11 BUN 12 mg/dL 6-26 Creatinine 0.7 mg/dL 0.6-1.4 BUN/Creat Ratio 17.1 CALC 8.0-36.0 Calcium 9.6 mg/dL 8.6-10.2 Total Protein 7.5 g/dL 6.3-8.1 Albumin 4.8 g/dL 3.8-5.5 Globulin 2.7 g/dL 2.0-4.8 A/G Ratio 1.8 CALC 0.6-2.3 Alk. Phosphatase 55 U/L 30-110 Alt (SGPT) 33 U/L 7-35 Ast (Sgot) 27 U/L 5-34 Total Bilirubin 0.5 mg/dL 0.2-1.3 Lipid Profile 12/22/2013 Cholesterol 195 mg/dL 120-200 Triglycerides 202 mg/dL High 30-200 HDL Cholesterol 45 mg/dL 30-85 LDL (Calculated) 110 CALC 0-129 VLDL Cholesterol 40 mg/dL 0-50 HDL Risk Factor 4.3 CALC 0.0-4.4 Ua - Non Micro (Fma) 10/15/2013 Appearance clear Color yellow Glucose 500 mg/dL High known diabetic Bilirubin neg Ketones neg SP Grav 1.010 Blood neg PH 6.0 Protein neg Urobil 0.2 Nitrite neg Leukocytes (a/[facility]) neg Laboratory test 10/15/2013 Thin Prep SEE NOTE 12 finding W/HPV(Lsil/SAM/Asc) Comprehensive 07/30/2013 Albumin 5.3 g/dL 3.8-5.5 Metabolic Prof Alk. Phos. 65 U/L 30-110 Alt (SGPT) 28 U/L 7-35 Ast (Sgot) 20 U/L 5-34 BUN 13 mg/dL 6-26 Calcium 10.2 mg/dL 8.6-10.2 Chloride 95 mEq/L 94-112 Creatinine 0.8 mg/dL 0.6-1.4 Carbon Dioxide 23 mEq/L 21-32 Glucose 104 mg/dL 70-105 Sodium 136 mEq/L 134-149 Total Bilirubin 0.5 mg/dL 0.2-1.3 Total Protein 8.2 g/dL High 6.3-8.1 13 Potassium 4.1 mEq/L 3.6-5.5 Globulin 2.9 g/dL 2.0-4.8 A/G Ratio 1.8 Calc 0.6-2.3 BUN/Creat Ratio 16.4 Calc 8.0-36.0 Laboratory test finding 07/30/2013 TSH 2.39 mIU/L 0.50-6.00 Magnesium 2.3 mEq/L High 1.2-2.1 14 Laboratory test finding 07/30/2013 Hemoglobin A1c ([facility]) 6.7 % High 4.1-5.7 Ua - Non Micro (Fma) 07/30/2013 Appearance CLEAR Color YELLOW Glucose, Urine (a/[facility]/CTX) NEG Bilirubin NEG Ketones TRACE SP Grav 1.015 Blood NEG PH 5.5 Protein NEG Urobil 0.2 Nitrite NEG Leukocytes (a/CMC/Centrex) NEG CBC Electronic ([facility]) 07/30/2013 WBC 13.5 High 3.6-9.6 RBC 5.32 3.90-5.70 Hemoglobin (Fma/CMC/CTX) 15.4 g/dL 12.1 - 17.2 Hematocrit (Fma/CMC/CTX) 46.1 % 36.1 - 50.3 Platelets 268 10^3/ul 150-400 Lymph% 28.3 20.5-51.1 Mixed% 3.3 Neutrophils % 68.4 Mean Corpuscular Vol 87 82.2-97.4 Mean Corpuscular Hemoglobin 28.9 27.6-33.3 Mean Corpuscular Hemo Concen 33.3 32.0-36.0 RDW 13.9 High 11.6-13.7 Mean Platelet Volume 8.1 6.5-11.0 Laboratory test finding 04/22/2013 Uric Acid 4.2 mg/dL 2.5-9.2 Laboratory test finding 04/22/2013 Hemoglobin A1c 7.2 % High 4.1-5.7 (Fma/CMC,CX) Sed Rate (Fma/CMC/Centrex) 13 mm CBC Electronic ([facility]) 04/22/2013 WBC 11.1 High 3.6-9.6 15 RBC 4.48 3.90-5.70 Hemoglobin (Fma/CMC/CTX) 13.0 g/dL 12.1 - 17.2 Hematocrit (Fma/CMC/CTX) 39.4 % 36.1 - 50.3 Platelets 253 10^3/ul 150-400 Lymph% 27.7 20.5-51.1 Mixed% 3.3 Neutrophils % 69.0 Mean Corpuscular Vol 88 82.2-97.4 Mean Corpuscular Hemoglobin 29.1 27.6-33.3 Mean Corpuscular Hemo Concen 33.1 32.0-36.0 RDW 12.1 11.6-13.7 Mean Platelet Volume 8.5 6.5-11.0 Laboratory test finding 01/20/2013 Hemoglobin A1c 7.2% % High 4.1-5.7 (Fma/CMC,CX) Laboratory test finding 10/14/2012 Thin Prep SEE NOTE 16 W/HPV(Lsil/SAM/Asc) Laboratory test finding 10/14/2012 Urine Microalbumin (Fma) 6.3mg/L Hemoglobin A1c (Fma/CMC,CX) 10.4% % High 4.1-5.7 Ua - Micro (Fma) 10/14/2012 Appearance clear Color yellow Glucose - Bilirubin - Ketones - SP Grav 1.010 Blood trace-intact PH 5.5 Protein - Urobil 0.2 Nitrite - Leukocytes (Fma/CMC/Centrex) - Hyaline - /Lpf Granular - /Lpf WBC (Fma,Centrex) 0-1 RBC 0-1 Mucus - /Lpf Epith occ /Lpf Bacteria rare /Hpf Amorphous - /Lpf Crystals, Fluid (Fma/CMC/CTX) - Z#Comments - Comprehensive Metabolic Prof 10/14/2012 Albumin 4.7 g/dL 3.8-5.5 Alk. Phos. 52 U/L 30-110 Alt (SGPT) 42 U/L High 7-35 Ast (Sgot) 43 U/L High 5-34 BUN 11 mg/dL 6-26 Calcium 9.6 mg/dL 8.6-10.2 Chloride 97 mEq/L 94-112 Creatinine 0.7 mg/dL 0.6-1.4 Carbon Dioxide 24 mEq/L 21-32 Glucose 172 mg/dL High 70-105 Sodium 134 mEq/L 134-149 Total Bilirubin 0.5 mg/dL 0.2-1.3 Total Protein 7.3 g/dL 6.3-8.1 Potassium 4.0 mEq/L 3.6-5.5 Globulin 2.6 g/dL 2.0-4.8 A/G Ratio 1.8 Calc 0.6-2.3 BUN/Creat Ratio 17.0 Calc 8.0-36.0 Lipid Profile 10/14/2012 Cholesterol 188 mg/dL 120-200 HDL 39 mg/dL 30-85 Triglycerides 217 mg/dL High 30-200 HDL Risk Factor 4.8 CALC High 0.0-4.4 LDL (Calculated) 105 CALC 0-129 VLDL (Calculated) 43 mg/dL 0-50 Laboratory test finding 10/14/2012 TSH 3.46 mIU/L 0.50-6.00 Free T4 1.04 ng/dL 0.75-1.54 Ua - Non Micro (Fma) 10/01/2012 Appearance CLEAR Color YELLOW Glucose, Urine (Fma/CMC/CTX) 500MG/L High Known Diabetic Bilirubin - Ketones - SP Grav 1.010 Blood - PH 5.0 Protein - Urobil 0.2 Nitrite - Leukocytes (Fma/CMC/Centrex) - Laboratory test finding 10/11/2011 Thin Prep W/HPV(Lsil/SAM/Asc) SEE NOTE 17 Ua - Micro (Fma) 10/11/2011 Appearance CLEAR Color YELLOW Glucose 500 High DM Bilirubin NEG Ketones NEG SP Grav 1.005 Blood TRACE-INTACT PH 5.0 Protein NEG Urobil 0.2 Nitrite NEG Leukocytes (Fma/CMC/Centrex) TRACE WBC (Fma,Centrex) 3-6 RBC 1-2 Epith OCC /Lpf Bacteria TRACE /Hpf Z#Comments SOME YEAST LIKE Organisms Microalbumin 24 HR (Fma) 12/25/2010 Microalbumin 24 HR <5.0 mg/L mg/dL 0- 92.1 (Fma) Volume, Total 3,000ML Laboratory test finding 12/21/2010 TSH 3.19 mIU/L 0.50-6.00 Comprehensive Metabolic Prof 12/21/2010 Albumin 4.4 g/dL 3.8-5.5 Alk. Phos. 51 U/L 30-110 Alt (SGPT) 48 U/L High 7-35 18 Ast (Sgot) 22 U/L 5-34 BUN 14 mg/dL 6-26 Calcium 8.9 mg/dL 8.6-10.2 Chloride 108 mEq/L 94-112 Creatinine 0.6 mg/dL 0.6-1.4 Carbon Dioxide 22 mEq/L 21-32 Glucose 119 mg/dL High 70-105 19 Sodium 140 mEq/L 134-149 Total Bilirubin 0.3 mg/dL 0.2-1.3 Total Protein 7.2 g/dL 6.3-8.1 Potassium 4.5 mEq/L 3.6-5.5 Globulin 2.8 g/dL 2.0-4.8 A/G Ratio 1.6 Calc 0.6-2.2 BUN/Creat Ratio 23.7 Calc 8.0-36.0 Lipid Profile 12/21/2010 Cholesterol 151 mg/dL 120-200 HDL 30 mg/dL 30-85 Triglycerides 116 mg/dL 30-200 HDL Risk Factor 5.0 CALC High 0.0-4.0 LDL (Calculated) 97 CALC 0-129 VLDL (Calculated) 23 mg/dL 0-50 CBC Manual Diff-[facility] 12/21/2010 WBC 10.2 High 3.6-9.6 RBC 4.56 3.90-5.70 Hemoglobin (a/CMC/CTX) 13.5 g/dL 12.1 - 17.2 Hematocrit (a/CMC/CTX) 40.1 % 36.1 - 50.3 Mean Corpuscular Vol 88 82.2-97.4 Mean Corpuscular Hemoglobin 29.7 27.6-33.3 Mean Corpuscular Hemo Concen 33.7 32.0-36.0 Platelets 257 10^3/ul 150-400 RDW 20.1 High 11.6-13.7 Mean Platelet Volume 9.8 6.5-11.0 Neutrophil 65 Band 3 Lymphocytes 25 Monocyte 2 Eosinophils 5 Z#Comment RBC/PLTS NORMAL Laboratory test 12/21/2010 Hemoglobin A1c 6.0 % High 4.1-5.7 finding ([facility]) Laboratory test 12/21/2010 Vitamin D, 25 Oh 32.3 ng/mL 32.0-100.0 20 finding Laboratory test 09/27/2010 TSH 5.98 mIU/L 0.50-6.00 finding Free T4 1.23 ng/dL 0.75-1.54 Basic Metabolic Profile 09/27/2010 BUN 12 mg/dL 6-26 Calcium 9.1 mg/dL 8.6-10.2 Chloride 99 mEq/L 94-112 Creatinine 0.7 mg/dL 0.6-1.4 Carbon Dioxide 25 mEq/L 21-32 Glucose 315 mg/dL High 70-105 21 Sodium 136 mEq/L 134-149 Potassium 4.3 mEq/L 3.6-5.5 BUN/Creat Ratio 17.5 Calc 8.0-36.0 Laboratory test finding 09/27/2010 Vitamin D, 25 Oh 18.4 ng/mL Low 32.0- 100.0 22 CBC Electronic ([facility]) 09/27/2010 WBC 12.1 High 3.6-9.6 RBC 4.79 3.90-5.70 Hemoglobin ([facility]/CMC/CTX) 14.4 g/dL 12.1 - 17.2 Hematocrit ([facility]/CMC/CTX) 42.2 % 36.1 - 50.3 Platelets 250 10^3/ul 150-400 Lymph% 25.3 20.5-51.1 Mixed% 7.6 Neutrophils % 67.1 Mean Corpuscular Vol 88.1 82.2-97.4 Mean Corpuscular Hemoglobin 30.1 27.6-33.3 Mean Corpuscular Hemo Concen 34.1 32.0-36.0 RDW 13.1 11.6-13.7 Mean Platelet Volume 12.1 High 6.5-11.0 Laboratory test 09/27/2010 Hemoglobin A1c 9.3 % High 4.1-5.7 finding (a/CMC,CX) Laboratory test 09/18/2010 Misc Lab Test [facility] finding Culture Genital 08/22/2010 Genital Culture MARGARITA ALBICANS 23, 24 CBCM-[facility] 05/29/2010 WBC 13.7 High 3.6-9.6 RBC 4.74 3.90-5.70 Hemoglobin (Fma/CMC/CTX) 14.5 g/dL 12.1 - 17.2 Hematocrit (a/CMC/CTX) 41.4 % 36.1 - 50.3 Mean Corpuscular Vol 87 82.2-97.4 Mean Corpuscular Hemoglobin 30.5 27.6-33.3 Mean Corpuscular Hemo Concen 34.9 33.0-36.0 Platelets 285 10^3/ul 150-400 RDW 12.2 11.6-13.7 Mean Platelet Volume 7.9 7.4-10.4 Neutrophil 75 Band 3 Lymphocytes 16 Monocyte 1 Eosinophils 4 Atypical Lymph 1 Comment RBC/PLTS NORMAL Laboratory test 05/29/2010 Sed Rate 23 mm finding (a/CMC/Centrex) Laboratory test 05/29/2010 C-Reactive Protein 4.2 mg/dL High 0.0-0.5 25 finding [place] Panel Complete 05/29/2010 Antinuclear Abs, Ifa Negative 25, 26 Adkins Rheumatoid Arth Factor 4.1 IU/mL 0.0-13.9 25 Anti Dsdna Antibodies <1 IU/mL 0-9 25, 27 Antiextractable Nuclear Ag 05/29/2010 TECHNICIAN [employer]MENT Antibodies 0.3 AI 0.0-0.9 25 Coreas Antibodies <0.2 AI 0.0-0.9 25 Anti Dna (SS) Igg, AB 05/29/2010 Anti-Dna(SS)IgG, Ab, Qn <20 EU 0-19 25 , 28 Hla-B27 Disease 05/29/2010 Hla-B27 Negative 25, 29 Association Anti Thyroid Abs 05/29/2010 Thyroid Peroxidase (Tpo) 87 IU/mL High 0-34 30 Ab Antithyroglobulin Ab 50 IU/mL High 0-40 30, 31 Laboratory test finding 05/29/2010 T-4 Free 1.3 ng/dL 0.8-1.8 30 TSH (Thyrotropin) 3.660 uIU/ml 0.350-5.500 30 Ua - Non Micro (a) 02/13/2010 Appearance CLEAR Color YELLOW Glucose, Urine (a/[facility]/CTX) NEG Bilirubin NEG Ketones NEG SP Grav 1.020 Blood NEG PH 5.0 Protein NEG Urobil 0.2 Nitrite NEG Leukocytes (a/[facility]/Centrex) NEG Laboratory test 02/13/2010 Cytology <SEE 32 finding NOTE> Laboratory test 09/29/2009 Hemoglobin A1c 6.3 % High 4.1-5.7 finding (a/[facility],CX) Basic Metabolic 09/29/2009 BUN 10 mg/dL 6-26 Profile Calcium 9.6 mg/dL 8.6-10.2 Chloride 98 mEq/L 94-112 Creatinine 0.6 mg/dL 0.6-1.4 Carbon Dioxide 22 mEq/L 21-32 Glucose 98 mg/dL 70-105 Sodium 139 mEq/L 134-149 Potassium 4.7 mEq/L 3.6-5.5 BUN/Creat Ratio 16.5 Calc 8.0-36.0 Basic Metabolic Profile 09/20/2009 BUN 11 mg/dL 6-26 Calcium 9.1 mg/dL 8.6-10.2 Chloride 103 mEq/L 94-112 Creatinine 0.7 mg/dL 0.6-1.4 Carbon Dioxide 27 mEq/L 21-32 Glucose 148 mg/dL High 70-105 33 Sodium 139 mEq/L 134-149 Potassium 4.0 mEq/L 3.6-5.5 BUN/Creat Ratio 16.3 Calc 8.0-36.0 Wound Culture 07/18/2009 Wound Culture Mixed skin dannielle <SEE NOTE> 34 .Gram Stain Additional NO EPI, NO WBC, <SEE NOTE> 35 Laboratory test finding 02/10/2009 TSH 2.52 mIU/L 0.50-6.00 36 Ua - Non Micro (a) 02/10/2009 Appearance clear Color yellow Glucose neg Bilirubin neg Ketones neg SP Grav 1.010 Blood neg PH 7.0 Protein neg Urobil 0.2 Nitrite neg Leukocytes (Fma/CMC/Centrex) neg Laboratory test finding 02/10/2009 Serotonin, Serum 136 ng/mL 0-420 Laboratory test finding 02/10/2009 Cytology 37 <SEE NOTE> Comprehensive Metabolic 02/10/2009 Albumin 4.1 g/dL 3.8-5.5 36 Prof Alk. Phos. 54 U/L 30-110 36 Alt (SGPT) 38 U/L High 7-35 36, 38 Ast (Sgot) 26 U/L 5-34 36 BUN 11 mg/dL 6-26 36 Calcium 9.0 mg/dL 8.6-10.2 36 Chloride 102 mEq/L 94-112 36 Creatinine 0.7 mg/dL 0.6-1.4 36 Carbon Dioxide 25 mEq/L 21-32 36 Glucose 86 mg/dL 70-105 36 Sodium 144 mEq/L 134-149 36 Total Bilirubin 0.4 mg/dL 0.2-1.3 36 Total Protein 7.0 g/dL 6.3-8.1 36 Potassium 4.2 mEq/L 3.6-5.5 36 Globulin 2.9 g/dL 2.0-4.8 36 A/G Ratio 1.4 Calc 0.6-2.2 36 BUN/Creat Ratio 15.4 Calc 8.0-36.0 36 Lipid Profile 02/10/2009 Cholesterol 155 mg/dL 120-200 36 HDL 54 mg/dL 30-85 36 Triglycerides 103 mg/dL 30-200 36 HDL Risk Factor 2.9 CALC Low 4.2-7.0 36 LDL (Calculated) 80 CALC 0-129 36 VLDL (Calculated) 21 mg/dL 0-50 36 HCG () Urine Stat 06/10/2008 Specific [place] 1.010 1.010-1.030 Urine NEGATIVE Negative 39 Laboratory test finding 2007 Quickstrep POSITIVE Negative Laboratory test finding 07/21/2004 Quickstrep NEG Negative Laboratory test finding 07/14/2002 Throat Culture NEGATIVE CBC With Diff (Fma) 11/15/2000 WBC 10.3 High 3.6-9.6 Lymphocytes 30.0 % 20.5 - 51.1 Monocytes 3.5 % 1.7 - 9.3 Granulocytes 66.5 % 42.2 - 75.2 Lymphocytes 3.1 10^3/uL 0.7 - 4.9 Monocytes 0.4 10^3/uL 0.1 - 0.9 Granulocytes 6.8 10^3/uL 1.5 - 7.2 RBC 4.79 3.90-5.70 Hemoglobin 14.1 g/dL 12.1 - 17.2 Hematocrit 41.8 % 36.1 - 50.3 Mean Corpuscular Vol 87.3 82.2-97.4 Mean Corpuscular Hemaglobin 29.5 27.6-33.3 Mean Corpuscular Hemo Concen 33.8 33.0-34.8 RDW 12.7 11.6-13.7 Platelets 228 10^3/ul 150-400 Mean Platelet Volume 10.0 7.4-10.4 Laboratory test finding 11/15/2000 Glucose 115, FINGERSTICK mg/dL 70 - 118 Laboratory test finding 11/13/2000 TSH 2.1 0.3-4.5 1 Please note: The following may produce a false positive D Dimer test: - Rheumatoid factor greater than 60 IU/ml - Plasma hemoglobin greater than 0.05 gm/dl - Bilirubin greater than 50 mg/dl - Lipids greater than 1000 mg/dl - FDP greater than 20 ug/ml 2 Because ethnic data is not always readily available, this report includes an eGFR for both -Americans and non- Americans. The National Kidney Disease Education Program (NKDEP) does not endorse the use of the MDRD equation for patients that are not between the ages of 18 and 70, are , have extremes of body size, muscle mass, or nutritional status, or are non- or non-. According to the National Kidney Foundation, irrespective of diagnosis, the stage of the disease is based on the level of kidney function: Stage Description GFR(mL/min/1.73 m(2)) 1 Kidney damage with normal or decreased GFR 90 2 Kidney damage with mild decrease in GFR 60-89 3 Moderate decrease in GFR 30-59 4 Severe decrease in GFR 15-29 5 Kidney failure <15 (or dialysis) 3 Critical Result LACT:3.2 Called to [id number] at: 09:54:10 by:[id number] Read back by:[id number] LOUISE Severe Sepsis and Septic Shock Management Bundle Measure requires all lactic acids initially measuring >2.0 mmol/L be repeated. 4 SEE RESULT BELOW Name: USHA EDEN : [address]: Mica Sorenson Acct: [id number] Unit: [id number] AGE: 50 Location: [facility] Re05/03/16 SEX: F Status: REG REF SPEC: [id number] EVANGELINA: 05/03/16-1522 [facility] DR: Mica CARNES C REQ: [id number] RECD: 05/04/16-1213 STATUS: ADRIAN BEST DR: Chris Eldridge MD _ ORDERED: IMAGE ANALYSIS, PAP SM PATH REV, HPV/Thin Prep FINAL DIAGNOSIS EPITHELIAL CELL ABNORMALITIES Atypical squamous cells of undetermined significance Fungal organisms morphologically consistent with Margarita species A. Ectocervical/Endocervical Specimen Adequacy: Satisfactory of evaluation Transformation zone component identified Patient Information: HPV: High risk HPV RNA testing regardless of pap results. Actual Specimen Date: 05/03/16 Last Menstrual Date: 01/26/16 Date of Last Specimen: 01/25/15 Date Time Test Result Flag (u) Normal Range 05/03/16 1522 HPV RNA Negative Negative The high-risk HPV types detected by the assay include: 16, 18, 31, 33, 35, 39, 45, 51, 52, 56, 58, 59, 66, and 68. Signed (signature on file) Thomas Mathis MD [id number] This Pap test was evaluated with the assistance of the [employer] Test Imaging System. Due to cytologic findings at the crossing watchman microscope, comprehensive manual rescreening by a Manager Of Production may be required. The Pap Smear is a screening test designed to aid in the detection of premalignant and malignant conditions of the uterine cervix. It is not a diagnostic procedure and should not be used as the sole means of detecting cervical cancer. Both false- positive and false- negative reports do occur. Depending on your risk status, a Pap smear should be obtained and evaluated every 1-3 years. END OF REPORT * ML=Testing performed at Main Lab DEPARTMENT OF PATHOLOGY, [address] [place] [address] Thomas Mathis M.D. Director [facility] # [id number] 5 1 aptima 6 Calculate total score by adding the 3 individual bacterial vaginosis (BV) marker scores together. Total score is interpreted as follows: Total score 0-1: Indicates the absence of BV. Total score 2: Indeterminate for BV. Additional clinical data should be evaluated to establish a diagnosis. Total score 3-6: Indicates the presence of BV. This test was developed and its performance characteristics determined by [facility]. It has not been cleared or approved by the Food and Drug Administration. The FDA has determined that such clearance or approval is not necessary. 7 This test was developed and its performance characteristics determined by [facility]. It has not been cleared or approved by the Food and Drug Administration. The FDA has determined that such clearance or approval is not necessary. 8 [facility] DEPARTMENT OF PATHOLOGY or Ext. 8244, Fax COMBINED HPV / ASSOCIATE FACULTY CYTOLOGY REPORT Patient: USHA EDEN : 1965 AGE: 49 Y SEX: F Acct: [id number] Procedure Date: 02/04/2015 Date Received: 02/07/2015 Requesting Provider: HOA DESHPANDE NP Location: [facility] Case No. [id number] Requisition #: [id number] CYTOLOGIC INTERPRETATION: SPECIMEN ADEQUACY SATISFACTORY FOR EVALUATION, ENDOCERVICAL TRANSFORMATION ZONE COMPONENT PRESENT GENERAL CATEGORIZATION NEGATIVE FOR INTRAEPITHELIAL LESIONS OR MALIGNANCY INTERPRETATION/ RESULT FUNGAL ORGANISMS MORPHOLOGICALLY CONSISTENT WITH MARGARITA SPECIES. RECOMMENDATIONS See Related Reference Test Result below. Refer to the corresponding web sites for 2012 updated general recommendation guidelines of U.S. preventive service task force for cervical cancer screening, and www.asccp.org//djfxwoism6236. COMMENTS Thin Prep Pap tests are examined with an FDA approved location-guidance system. RELATED REFERENCE TEST RESULT: HPV: "HIGH RISK" Source: CERVICAL Result: NEGATIVE Test Method: HC2 Performing Location: METHODOLOGY: HPV high risk is performed with the FDA approved Digene HC2 method whenever the specimen is cellular enough and the quantity of sample remaining in the vial after Thin Prep PAP slide preparation equals or greater than 4 ml. In cases of smaller sample (0.5 to 3.9 ml) the HPV high risk testing will be performed with Low Volume rfx. ( RN) Digene Hybrid Capture (HC2). FDA approved and detects 13 "high risk" HPV types (16/18/31/33/35/39/45/51/52/56/58/59/68) without differentiation. (02 BN) Low Volume rfx detects fourteen "high risk" HPV types (16/18/31/33/35/39/45/51/52/56/58/59/66/68) without differentiation. SPECIMEN SUBMITTED: * * (HPVR) THIN PREP W/HPV * * ENDOCERVICAL RELEVANT HISTORY: LMP: 01/24/2015 Contraceptive: BCP : 1 Prev.normal: 2013 Para: 1 Screened/Rescree Electronically Sign Out Performing tobias by: Signed by: Date/Time: Location: JOE PAULINO 02/09/2015 08:40 00 XI BAH(ASCP) Note: The Pap smear is a screening test designed to aid in the detection of premalignant and malignant conditions of the uterine cervix. It is not a diagnostic procedure and should not be used as the sole means of detecting cervical cancer. Both false-positive and false-negative reports do occur. 00 UA Pap Smear performed at [facility] Dir: Christiano Lozano MD, [address] [facility] [id number] 01 senior telecommunications technician [facility] [place] Dir: Chantelle Fonseca MD, [address] [facility] [phone] 02 Lab [facility] [place] Dir: Micky Julian MD, [address] [place] [phone] For inquiries regarding HPV test results, the physician may contact [facility]: [phone] . 9 RESULTS VERIFIED BY REPEAT ANALYSIS 10 RESULTS VERIFIED BY REPEAT ANALYSIS 11 RESULTS VERIFIED BY REPEAT ANALYSIS 12 [facility] DEPARTMENT OF PATHOLOGY or Extension 5501 ASSOCIATE FACULTY CYTOLOGY REPORT Patient: USHA EDEN : 1965 AGE: 47 Y SEX: F Acct: [id number] Procedure Date: 10/15/2013 Date Received: 10/16/2013 Requesting Provider: VIDA SAAVEDRA NP Location: [facility] Case No. [id number] Requisition #: [id number] CYTOLOGIC INTERPRETATION: SPECIMEN ADEQUACY SATISFACTORY FOR EVALUATION, ENDOCERVICAL TRANSFORMATION ZONE COMPONENT PRESENT GENERAL CATEGORIZATION NEGATIVE FOR INTRAEPITHELIAL LESIONS OR MALIGNANCY RECOMMENDATIONS Refer to the corresponding web sites for 2012 updated general recommendation guidelines of U.S. preventive service task force for cervical cancer screening, and www.asccp.org//peuualrhw0535. COMMENTS Thin Prep Pap tests are examined with an FDA approved location-guidance system. PATIENT DATA: SPECIMEN SUBMITTED: * * (HPVII) THIN PREP W/HPV (LSIL/ASC/SAM) * * CERVICAL/ENDOCERVICAL RELEVANT HISTORY: : 1 Prev.normal: 2012 Para: 1 Comment: LMP: 3 MONTHS AGO ADDITIONAL COPIES SENT TO: Screened/Rescreened Electronically Signed Sign Out Date/Time: by: by: MYRANDA GERARD, 10/16/2013 15:08 CT(ASCP) Note: The Pap smear is a screening test designed to aid in the detection of premalignant and malignant conditions of the uterine cervix. It is not a diagnostic procedure and should not be used as the sole means of detecting cervical cancer. Both false-positive and false-negative reports do occur. 00 UA Pap Smear performed at [facility] Dir: Christian[place]oz[place], [address] [place] [id number] 01 senior telecommunications technician [facility] [place] Dir: Lonnie Mcgowan MD, [address] [place] [phone] 02 Lab [facility] [place] Dir: Micky Julian MD, [address] [place] [phone] For inquiries regarding HPV test results, the physician may contact [facility]: [phone] . 13 RESULT COREY'D 14 RESULT COREY'D 15 result corey'd 16 [employer] DEPARTMENT OF PATHOLOGY or Extension 6788 ASSOCIATE FACULTY CYTOLOGY REPORT PATIENT: USHA EDEN : 1965 AGE: 46 Y SEX: F ACCT: [id number] PROCEDURE DATE: 10/14/2012 DATE RECEIVED: 10/15/2012 REQUESTING PROVIDER: VIDA SAAVEDRA NP LOCATION: [facility] Case No. [id number] PATIENT DATA: [id number] SPECIMEN SUBMITTED: * * (HPVII) THIN PREP W/HPV (LSIL/ASC/SAM) * * ENDOCERVICAL RELEVANT HISTORY: Menarche: Y Contraceptive: SEASONALE : 1 Prev.normal: 3-12 Para: 1 SPECIMEN ADEQUACY SATISFACTORY FOR EVALUATION, ENDOCERVICAL TRANSFORMATION ZONE COMPONENT PRESENT GENERAL CATEGORIZATION NEGATIVE FOR INTRAEPITHELIAL LESIONS OR MALIGNANCY COMMENTS Thin Prep Pap tests are examined with an FDA approved location-guidance system. ADDITIONAL COPIES SENT TO: Screened/Rescreened Electronically Signed Sign Out Date/Time: by: by: JOE BAH, 10/16/2012 11:08 CT(ASCP) Note: The Pap smear is a screening test designed to aid in the detection of premalignant and malignant conditions of the uterine cervix. It is not a diagnostic procedure and should not be used as the sole means of detecting cervical cancer. Both false-positive and false-negative reports do occur. 00 UA Pap Smear performed at [facility] Dir: Christiano Lozano MD, [address] [facility] [id number] 01 senior telecommunications technician [facility] [place] Dir: Lonnie Mcgowan MD, [address] [facility] [phone] 02 [facility] [place] Dir: Micky Julian MD, [address] [place] [phone] For inquiries regarding HPV test results, the physician may contact [facility]: [phone] . 17 [employer] DEPARTMENT OF PATHOLOGY or Extension 1147 ASSOCIATE FACULTY CYTOLOGY REPORT PATIENT: USHA EDEN : 1965 AGE: 45 Y SEX: F ACCT: [id number] PROCEDURE DATE: 10/11/2011 DATE RECEIVED: 10/12/2011 REQUESTING PHYSICIAN: VIDA SAAVEDRA NP LOCATION: [facility] Case No. [id number] PATIENT DATA: [id number] SPECIMEN SUBMITTED: * * (HPVII) THIN PREP W/HPV (LSIL/ASC/SAM) * * ENDOCERVICAL RELEVANT HISTORY: Menarche: Y Contraceptive: SEASONALE : 1 Prev.normal: 01/2010 Para: 1 Comment: LMP: TWO MONTHS AGO SPECIMEN ADEQUACY SATISFACTORY FOR EVALUATION, ENDOCERVICAL TRANSFORMATION ZONE COMPONENT PRESENT GENERAL CATEGORIZATION NEGATIVE FOR INTRAEPITHELIAL LESIONS OR MALIGNANCY INTERPRETATION/ RESULT FUNGAL ORGANISMS MORPHOLOGICALLY CONSISTENT WITH MARGARITA SPECIES. RECOMMENDATIONS Thin Prep Pap tests are examined with an FDA approved location-guidance system. ADDITIONAL COPIES SENT TO: Screened/Rescreened Electronically Signed Sign Out Date/Time: by: by: JOE BAH, 10/15/2011 11:15 CT(ASCP) The Pap smear is a screening test designed to aid in the detection of premalignant and malignant conditions of the uterine cervix. It is not a diagnostic procedure and should not be used as the sole means of detecting cervical cancer. Both false-positive and false-negative reports do occur. Performed @ [address] [place] [place] [id number] 18 RESULT COREY'D 19 RESULT COREY'D 20 Recent studies consider the lower limit of 32.0 ng/mL to be a threshold for optimal health. Waggoner BW. J Nutr. 2004;135(2):317-22. 21 RESULT COREY'D 22 Recent studies consider the lower limit of 32.0 ng/mL to be a threshold for optimal health. Waggoner BW. J Nutr. 2004;135(2):317-22. 23 Specimen Description: vaginal 24 M^MANY^QTY NORMAL DANNIELLE M^MANY^QTY 25 FASTING; 3 SSTS; 1 LAV 26 Negative <1:80 Borderline 1:80 Positive >1:80 27 Negative <5 Equivocal 5 - 9 Positive >9 28 Negative: <20 Borderline: 20 - 25 Positive: >25 29 This test was performed using PCR (Polymerase Chain Reaction)/SSOP (Sequence Specific Oligonucleotide Probes) technique. SBT (Sequence Based Typing) and/or SSP (Sequence Specific Primers) may be used as supplemental methods when necessary. Please contact [facility] Customer Service at if you have any questions. . Director of [facility] Dr Lewis Rhodes, PhD 30 added to order #[id number] collected 05/29 31 Siemens (DPC) ICMA Methodology 32 ---- RUN DATE: 02/14/10 [facility] NMI LIVE PAGE 1 RUN TIME: 1422 Specimen Inquiry RUN USER: INTERFACE -- Name: USHA EDEN Status: REG REF Re02/13/10 Age/Sex: 44/F Unit#: [id number] Location: [facility] : 65 -- Specimen: [id number] SOUT Spec Date: 02/13/[address]: Chris templeton MD Spec Type: CYTOLOGY Received: 02/14/10-0840 Copies to: SOURCE ECTOCERVICAL/ENDOCERVICAL Thin Prep with Reflex HPV Test PATIENT INFORMATION ACTUAL COLLECTION DATE: 02/13/10 ? No POST MENOPAUSAL? No HYSTERECTOMY? No PREVIOUS ABNORMAL PAP SMEARS No LAST MENSTRUAL PERIOD: 11/19/09 ADEQUACY OF SPECIMEN Satisfactory for evaluation * Transformation zone component identified * DIAGNOSIS NEGATIVE FOR INTRAEPITHELIAL LESION OR MALIGNANCY * This Pap test was evaluated with the assistance of the [employer] Pap Test Imaging System. The Pap Smear is a screening test designed to aid in the detection of premalign ant and malignant conditions of the uterine cervix. It is not a diagnostic procedure a nd should not be used as the sole means of detecting cervical cancer. Both false- positiv e and false-negative reports do occur. Depending on your risk status, a Pap smear florian uld be obtained and evaluated every one to three years. Initial evaluation performed by Seth CRISTINA([facility]) 02/14/10 Final Interpretation electronically signed by: Seth CRISTINA([facility]) 02/14/10 1422 -- -- DEPARTMENT OF PATHOLOGY, [address] [place] [address] [facility] Permit #[id number] Thomas Mathis M.D. Director Keagan Nieves M.D. Permastone Mechanic Dir burrell -- 33 result corey'jorge luis 34 Mixed skin dannielle. 35 NO EPI, NO WBC, MOD. GRAM POS COCCI, RARE GRAM NEG RODS 36 FASTING 37 ---- RUN DATE: 02/11/09 [facility] NMI LIVE PAGE 1 RUN TIME: 1306 Specimen Inquiry RUN USER: INTERFACE -- Name: USHA EDEN Status: REG REF Re02/10/09 Age/Sex: 43/F Unit#: [id number] Location: [facility] : 65 -- Specimen: [id number] ADRIAN Spec Date: 02/10/[address]: Chris templeton MD Spec Type: CYTOLOGY Received: 02/11/09 Copies to: SOURCE ECTOCERVICAL/ENDOCERVICAL Thin Prep with Reflex HPV Test PATIENT INFORMATION ACTUAL COLLECTION DATE: 02/10/09 ? No POST MENOPAUSAL? No HYSTERECTOMY? No PREVIOUS ABNORMAL PAP SMEARS No LAST MENSTRUAL PERIOD: 01/24/09 PATIENT HISTORY: Prior 01/2008 ADEQUACY OF SPECIMEN Satisfactory for evaluation * Transformation zone component identified * DIAGNOSIS NEGATIVE FOR INTRAEPITHELIAL LESION OR MALIGNANCY * This Pap test was evaluated with the assistance of the ThinPrep Pap Test Imaging System. The Pap Smear is a screening test designed to aid in the detection of premalign ant and malignant conditions of the uterine cervix. It is not a diagnostic procedure a nd should not be used as the sole means of detecting cervical cancer. Both false- positiv e and false-negative reports do occur. Depending on your risk status, a Pap smear florian uld be obtained and evaluated every one to three years. Initial evaluation performed by Seth CRISTINA([facility]) 02/11/09 Final Interpretation electronically signed by: Seth CRISTINA([facility]) 02/11/09 1304 -- DEPARTMENT OF PATHOLOGY, [address] [place] [address] [facility] Permit #[id number] Thomas Mathis M.D. Director Keagan Nieves M.D. Permastone Mechanic Dir indra -- 38 RESULT COREY'D 39 If is still suspected, please repeat test after 48 to 72 hours. . Procedures Date CPT Code Description Status 07/23/2017 Mammogram Completed 06/26/2016 Mammogram Completed 03/20/2016 36757 Finger Or Heel Stick Completed 02/17/2015 Mammogram Completed 07/01/2014 66163 Finger Or Heel Stick Completed 10/29/2013 Mammogram Completed 07/30/2013 18578 Electrocardiogram Complete Completed 01/20/2013 66262 Finger Or Heel Stick Completed 10/23/2012 Mammogram Completed 11/06/2011 Colonoscopy Completed 10/23/2011 Mammogram Completed 05/30/2009 Mammogram Completed 05/07/2008 Mammogram Completed 02/14/2006 Mammogram Completed Encounters Type Date Location Provider CPT E/M Dx Office Visit 03/20/2016 3:30p [facility] Office [facility] 76950 N76.0 E11.9 Office Visit 10/26/2015 10:00a Main Office Erik Whitmore M.D. 74875 G50.1 K08.8 Office Visit 02/04/2015 9:15a [facility] [place] [address] V72.31 V25.41 V76.41 112.1 250.02 Office Visit 07/12/2014 8:30a [facility] [place] [address] 250.02 Office Visit 07/01/2014 1:20p Main Office Chris Eldridge M.D. 93490 250.02 785.1 726.10 V18.3 Office Visit 04/01/2014 1:00p Main Office Chris Eldridge M.D. 41507 250.02 785.1 Office Visit 12/24/2013 3:20p Main Office Chris Eldridge M.D. 02499 250.02 785.1 112.1 Office Visit 10/15/2013 10:45a Main Office Bravonp-C 21642 V72.31 v06.5 V76.41 Office Visit 04/22/2013 1:00p [facility] Chris Eldridge M.D. 13292 682.9 250.00 Office Visit 04/18/2013 9:10a Main Office Erik Whitmore M.D. 00488 682.9 Office Visit 01/20/2013 12:00p Main Office Vida Saavedra Afnp-C 49533 250.02 Office Visit 10/14/2012 1:00p Main Office Vida Saavedra Afnp-C 56843 V72.31 250.02 692.9 599.72 V70.0 Office Visit 10/01/2012 11:00a [facility] Vida Saavedra Afnp-C 60135 616.10 250.02 Office Visit 10/11/2011 3:30p [facility] Vida Saavedra Afnp-C 38246 V72.31 569.3 791.7 Office Visit 07/30/2011 1:30p Main Office Ariadne Hair Afnp-C 91530 719.46 Office Visit 02/05/2011 1:10p Main Office Alexandr Vanessa M.D. 99606 916.4 250.00 Office Visit 11/02/2010 4:20p Main Office Chris Eldridge M.D. 67272 250.00 Office Visit 10/16/2010 9:40a [facility] Radha Burns M.D. 12409 626.2 250.00 268.9 288.60 245.2 Office Visit 10/07/2010 9:00a [facility] Chris Eldridge M.D. 95942 250.00 245.2 268.9 Office Visit 09/30/2010 9:30a Main Office Vida Saavedra Afnp-C 34006 250.00 Office Visit 09/27/2010 4:20p Main Office Radha Burns M.D. 35292 245.2 626.2 250.00 268.9 Office Visit 05/29/2010 11:00a [facility] Chris Eldridge M.D. 17644 683 V74.1 v74.1 Office Visit 05/17/2010 11:00a Main Office Erik Whitmore M.D. 56368 683 Office Visit 02/13/2010 9:20a [facility] Chris Eldridge M.D. 22114 V70.0 V76.2 278.00 627.9 Office Visit 09/20/2009 11:10a Main Office Nena Sarkar M.D. 79599 110.3 Office Visit 07/18/2009 3:40p [facility] Chris Eldridge M.D. 42712 110.3 Office Visit 05/10/2009 11:10a [facility] Chris Eldridge M.D. 60559 110.3 Office Visit 02/10/2009 10:20a Main Office Chris Eldridge M.D. 74263 V76.2 V18.0 V17.49 799.81 Office Visit 10/19/2008 3:30p [facility] Robert [place] 79084 112.1 Office Visit 10/06/2008 12:30p Main Office Erik Whitmore M.D. 43582 461.9 Office Visit 12/03/2007 9:50a Main Office Sara Smith, 30700 528.2 M.DCristian Office Visit 2007 2:00p [facility] Robert [place] 62345 034.0 Office Visit 07/23/2007 2:15p Main Office Robert Nolan-C 40722 465.9 464.20 Office Visit 03/04/2007 11:30a Main Office Chris Eldridge M.D. 09085 840.8 Office Visit 12/25/2005 1:30p Main Office Chris Eldridge M.D. 63626 844.9 Office Visit 08/02/2005 3:20p Main Office Chris Eldridge M.D. 95343 726.12 Office Visit 07/21/2004 12:00p Main Office Tiffani Santos 59816 079.99 Office Visit 02/05/2004 11:15a Main Office Lonnie Carey [facility] 33916 989.5 Office Visit 12/30/2003 9:40a Main Office Chris Eldridge M.D. 03757 719.41 Office Visit 03/12/2003 2:15p [facility] Tiffani Santos 76309 959.7 Office Visit 11/03/2002 4:00p Main Office Shameka Huertas Ishan [facility] 37714 883.0 Office Visit 10/27/2002 2:00p Main Office Eduard Abernathy M.D. 12794 883.0 V58.3 Office Visit 09/30/2002 12:00p Main Office Eduard Abernathy M.D. 15352 112.1 Office Visit 07/14/2002 10:30a Main Office Ariadne Hair Shahid 66125 462 Office Visit 07/16/2001 10:20a Main Office Alexandr Vanessa M.D. 43413 Office Visit 04/16/2001 9:30a Main Office LEEANNA JonesP 16011 Office Visit 12/05/2000 2:10p Main Office Chris Eldridge M.D. 88167 Office Visit 11/15/2000 2:10p Main Office Chris Eldridge M.D. 10714 Office Visit 07/04/2000 3:00p Main Office Chris Eldridge M.D. 84316 Office Visit 03/14/2000 2:00p Main Office Tiffani Santos 09931 Plan of Care Future Appointment(s):06/03/2018 11:00 am - Chris Eldridge M.D. at [facility] Dlqtxv9505/29/2018 - Meryl Sanders, NPR10.13 Epigastric painComments:Due to your high white blood cell count from this weekend and the return of your pain, I suggest yougo back to the emergency department for further workup and possible surgical consultation.K81.0 Acute cholecystitisAllComments:1. Patient has been queried about patient's goals/preferences and functional/lifestyle goals at relevant visits. If relevant, describe: Has been discussed, noted above2. Treatment goals as explainedto the patient: see above3. Are there barriers to meeting treatment goals? Yes If Yes, please describe: Barriers include possible insurance limits, disease process, and difficulty with lifestyle changes4. Self-Management goals as described to the patient: Yes, see above As always, we strongly encourage a healthy diet and making physical activity a part of your every day life. If you have questions about how or where to start, please contact the office.
[2018-05-29] MEDS ORDERED: Metoclopramide IV* 5 MG/ML 2 ML VIAL IV ONE (15:59)
[2018-05-29] MEDS ORDERED: Ketorolac INJ* 30 MG/ML 1 ML VIAL IV PUSH ONE (15:59)
[2018-05-29] MEDS ORDERED: NS 0.9% 1000 ML* 1,000 ML IV ONE (15:59)
--- NOTE | 2018-05-29 16:08 | ED ---
Abdominal Pain/Female - HPI Summary HPI Summary: This patient is a 52 year old F presenting to [facility] with a chief complaint of epigastric pain that returned today at 1100. Pt was seen in the ED 5 days ago for the same sx and US showed she did have gallstones without inflammation. She states she has not had pain since Saturday. The patient rates the pain 9/10 in severity. Symptoms alleviated by nothing, she took tramadol without relief. Patient denies fever and n/v/d. Hx DM and palpitations. - History of Current Complaint Chief Complaint: EDAbdPain Stated Complaint: CHEST PAIN Time Seen by Provider: 05/29/18 15:32 Hx Obtained From: Patient Onset/Duration: Lasting Hours, Still Present Timing: Constant Severity Initially: Severe Severity Currently: Severe Pain Intensity: 9 Pain Scale Used: 0-10 Numeric Location: Other - epigastric Radiates: No Alleviating Factor(s): Nothing Associated Signs and Symptoms: Negative: Fever, Nausea, Vomiting, Diarrhea Allergies/Adverse Reactions: Allergies Allergy/AdvReac Type Severity Reaction Status Date / Time propoxyphene AdvReac GI Upset Verified 05/29/18 15:38 [From [facility]] PMH/Surg Hx/FS Hx/Imm Hx Endocrine/Hematology History: Reports: Hx Diabetes Cardiovascular History: Reports: Other Cardiovascular Problems/Disorders - Palpitations Denies: Hx Hypertension GI History: Reports: Hx Gastroesophageal Reflux Disease History: Denies: Hx Renal Disease Psychiatric History: Denies: Hx of Violent Episodes Against Others - Cancer History Hx Chemotherapy: No Hx Radiation Therapy: No - Surgical History Surgery Procedure, Year, and Place: HERNIA REPAIR Infectious Disease History: No Infectious Disease History: Denies: Traveled Outside the [place] in Last 30 Days - Family History Known Family History: Positive: Diabetes - Social History Alcohol Use: Occasionally Hx Substance Use: No Substance Use Type: Reports: None Hx Tobacco Use: Yes Smoking Status (MU): Former Smoker Review of Systems Negative: Fever Positive: Abdominal Pain. Negative: Vomiting, Diarrhea, Nausea All Other Systems Reviewed And Are Negative: Yes Physical Exam - Summary Physical Exam Summary: GENERAL: Patient is a well-developed and nourished F who is lying comfortable in the stretcher. Patient is not in any acute respiratory distress. HEAD AND FACE: Normocephalic EYES: PERRLA, EOMI x 2. EARS: Hearing grossly intact. MOUTH: Oropharynx within normal limits. NECK: Supple, trachea is midline, no adenopathy, no JVD, no carotid bruit. CHEST: Symmetric, no tenderness at palpation LUNGS: Clear to auscultation bilaterally. No wheezing or crackles. CVS: Regular rate and rhythm, S1 and S2 present, no murmurs or gallops appreciated. ABDOMEN: Soft. Bowel sounds are normal. No abdominal abnormal pulsations. Mildly TTP in epigastric EXTREMITIES: Full ROM in all major joints, no edema, no cyanosis or clubbing. NEURO: Alert and oriented x 3. No acute neurological deficits. Speech is normal and follows commands. SKIN: Dry and warm Triage Information Reviewed: Yes Vital Signs On Initial Exam: Initial Vitals Temp Pulse Resp BP Pulse Ox 97.8 F 104 18 140/56 99 05/29/18 15:16 05/29/18 15:16 05/29/18 15:16 05/29/18 15:16 05/29/18 15:16 Vital Signs Reviewed: Yes Diagnostics - Vital Signs Vital Signs Temp Pulse Resp BP Pulse Ox 05/29/18 15:16 97.8 F 104 18 140/56 99 - Laboratory Result Diagrams: 05/29/18 16:14 05/29/18 16:14 Lab Statement: Any lab studies that have been ordered have been reviewed, and results considered in the medical decision making process. - Radiology CXR Radiology Interpretation Completed By: Radiologist Summary of Radiographic Findings: NO ACTIVE CARDIOPULMONARY DISEASE IS NOTED. ED physician has reviewed this radiology report. - EKG 1643 Cardiac Rate: NL EKG Rhythm: Sinus Rhythm - at 80 BPM Summary of EKG Findings: no ischemic changes - Additional Comments Diagnostic Additional Comments: US Gallbladder reveals, per radiologist, Cholelithiasis without biliary duct dilatation. Echogenic liver consistent with hepatic steatosis. ED physician has reviewed this radiology report. Re-Evaluation - Re-Evaluation First Eval Re-Evaluation Time: 17:58 Change: Improved Comment: The patients's pain has improved. Abdominal Pain Fem Course/Dx - Course Course Of Treatment: This patient is a 52 year old F presenting to [facility] with a chief complaint of epigastric pain. Work up shows gallstones without evidence of cholelithiasis also her LFTs were slightly elevated in comparison to last visit. We discussed patient care with Dr Guillory and he recommended the patient pt see Dr. Hill tomorrow at 0315. He also agrees this is biliary colic and that she should be d/c home since she is not septic of toxic appearing and pain is controlled at this time The patient is agreeable with this plan. An EKG reveals nsr 80 bpm no ischemic changes 1643. CXR reveals, per radiologist, NO ACTIVE CARDIOPULMONARY DISEASE IS NOTED. US Gallbladder reveals, per radiologist, Cholelithiasis without biliary duct dilatation. Echogenic liver consistent. with hepatic steatosis. - Diagnoses Provider Diagnoses: Biliary colic - Provider Notifications Discussed Care Of Patient With: Henri Guillory Time Discussed With Above Provider: 17:45 Instructed by Provider To: Other - He suggested the patient see Dr. Hill tomorrow in the office at 315. Discharge - Sign-Out/Discharge Documenting (check all that apply): Patient Departure - Discharge Plan Condition: Stable Disposition: HOME Patient Education Materials: Biliary Colic (ED) Referrals: Chris Eldridge MD [Primary Care Provider] - Gerber Hill MD [Medical Doctor] - Additional Instructions: Dr Hill will see you in his office tomorrow at 315PM. Follow up with your primary care physician in 1-3 days. RETURN TO THE EMERGENCY DEPARTMENT FOR CHANGING OR WORSENING SYMPTOMS. - Billing Disposition and Condition Condition: STABLE Disposition: Home - Attestation Statements Document Initiated by Katja: Yes Documenting Scribe: Mehul Winter Provider For Whom Katja is Documenting (Include Credential): Verito Lawson MD Scribe Attestation: Mehul Hwang scribed for Verito Lawson MD on 05/30/18 at 0732. Scribe Documentation Reviewed: Yes Provider Attestation: The documentation as recorded by the Mehul min accurately reflects the service I personally performed and the decisions made by me, Verito Lawson MD
[2018-05-29 16:11] LABS: Urine Appearance Clear; Urine Blood Negative (Negative); Urine Color Yellow; Urine Ketones Negative (Negative); Urine Protein Negative (Negative); Urine Specific Gravity 1.006 (1.010-1.030); Urine Urobilinogen Negative (Negative)
[2018-05-29 16:33] LABS: ABS Basophils 0 10^3/ul (0-0.2); ABS Eosinophils 0.1 10^3/ul (0-0.6); ABS Lymphocytes 2.6 10^3/ul (1.0-4.8); ABS Monocytes 0.6 10^3/ul (0-0.8); ABS Neutrophils 6.9 10^3/ul (1.5-7.7); ABS Nucleated RBC 0 10^3/ul; Hematocrit 42 % (35-47); Hemoglobin 14.2 g/dl (12.0-16.0); Lymphocyte % 25.2 % (25-47); Mean Corpuscular HGB Conc 34 g/dl (31-36); Mean Corpuscular Hemoglobin 29 pg (27-31); Mean Corpuscular Volume 85 fL (80-97); Mean Platelet Volume 9.4 fL (7.4-10.4); Nucleated Red Blood Cells % 0.1; Platelet Count 278 10^3/ul (150-450); Red Cell Distribution Width 13 % (10.5-15); White Blood Count 10.2 10^3/ul (3.5-10.8)
[2018-05-29 16:55] LABS: EGFR Non-African American 113.7 (>60)
[2018-05-29 18:07] VITALS: BP 136/88
== END 2018-05-29 18:17 | disposition home or self-care (01) ==
LOC: ED 15:15
DX: K80.50 Calculus of bile duct without cholangitis or cholecystitis without obstruction (principal); E11.9 Type 2 diabetes mellitus without complications; Z87.891 Personal history of nicotine dependence
CPT/HCPCS: 36415; 71045; 76705; 80053; 81003; 83605; 83690; 84484; 85025; 85730; 86140; 93005; 96360; 96361; 96374; 96375; 99282; J1885; J2765